=== PATIENT | female | born 1970 | race Two or more races ===

== ENCOUNTER 2019-12-26 12:55 | Emergency (ER) | payer OTHER ==
[~2019-12-26] VITALS: Ht 152.4 cm; Wt 63.3 kg
[2019-12-26] MEDS ORDERED: STATIN (13:06)
[2019-12-26] MEDS ORDERED: HYDROCHLOROTHIAZIDE (13:06)
[2019-12-26] MEDS ORDERED: METOPROLOL (13:06)
--- NOTE | 2019-12-26 13:07 | NUR ---
BIB [facility] FROM HOME. PT C/O LOSING COORDINATION RECENTLY. PT HASN'T TAKEN PRESCRIBED MEDS IN A COUPLE YEARS, HCTZ, STATING, METOPROLOL. PT BP 232/154, [facility] GAVE METOPROLOL 5MG AT 1230, BP 180/100. NEUROSURGICAL PHYSICIAN ASSISTANT [facility]: PIV 20G RWRIST. PT CONNECTED TO MONITORING. EKG COMPLETE. CALL LIGHT IN REACH.
--- NOTE | 2019-12-26 15:27 | NUR ---
THIS FLOAT RN AT BEDSIDE TO DC PT. PT VERBALIZED UNDERSTANDING TO DC INSTRUCTIONS. AMBULATORY TO CHECKOUT C STEADY GAIT.
[2019-12-26 15:30] VITALS: BP 174/114
== END 2019-12-26 15:32 | disposition home or self-care (01) ==
LOC: ED 13:25
DX: I10 Essential (primary) hypertension (principal); R94.31 Abnormal electrocardiogram [ECG] [EKG]; Z76.0 Encounter for issue of repeat prescription
CPT/HCPCS: 93005; 99283